=== PATIENT | male | born 1980 | race Asian ===

== ENCOUNTER 2018-07-30 10:09 | Day surgery (SDC) | payer OTHER ==
[~2018-07-30] VITALS: Ht 175.3 cm; Wt 64.0 kg
[2018-07-30] VITALS (14 sets, daily range): BP systolic 141–169; BP diastolic 88–99; PULSE 64–74; RESP 10–18; Ht 175.3 cm; Wt 64.0 kg
[~2018-07-30 10:09] MED LIST: CEFAZOLIN 2 GM/50 ML (PMX) 50 ML IVPB ONE
[2018-07-30] MEDS ORDERED: LACTATED RINGER'S 1,000 ML IV SCH (11:30)
--- NOTE | 2018-07-30 13:07 | HPN ---
Date/Time of Note Date/Time of Note DATE: 07/30/18 TIME: 13:07 Interval H&P Admission Note Pt. seen H&P reviewed: No system changes KD QUINTANA July 30, 2018 13:07
[2018-07-30] MEDS ORDERED: BUPIVACAINE 0.25% (MPF) 30 ML INJ ONE (13:22)
--- NOTE | 2018-07-30 13:22 | PREAC ---
Date/Time of Note Date/Time of Note DATE: 07/30/18 TIME: 13:21 Anesthesia Eval and Record Evaluation Time Pre-Procedure Interview DATE: 07/30/18 TIME: 13:21 Age 38 Sex male NPO: 8 hrs Preoperative diagnosis R. Hydrocele Planned procedure R. Hydrocelectomy Past Medical History Past Medical History: Includes Musculoskeletal: Other (Gout) Surgery & Anesthesia Issues No known issue Meds Anticoagulation: No Beta Cesar within 24 hr: No Reason Beta Cesar not given: Pt. not on B-Cesar No Active Prescriptions or Reported Meds Current Medications Lactated Ringer's 1,000 ml @ 30 mls/hr Q24H IV Last administered on 07/30/18at 11:06; Admin Dose 30 MLS/HR; Start 07/30/18 at 11:30 Meds reviewed: Yes Allergies Coded Allergies: No Known Drug Allergies (Unverified Allergy, Unknown, 07/30/18) Allergies Reviewed: Yes Labs/Studies Labs Reviewed: Reviewed by anesthesiologist test: N/A Pre-procedure Exam Last vitals Vital Signs Date Temp Pulse Resp B/P (MAP) Pulse Ox O2 O2 Flow FiO2 Time Delivery Rate 07/30/18 97.8 69 16 143/89 100 Room Air 10:30 (107) Airway: Adequate mouth opening Mallampati: Mallampati II Teeth: Normal Lung: Normal Heart: Normal ASA Physical Status ASA physical status: 2 Emergency: None Planned Anesthetic General/MAC: LMA Pre-operative Attestations Prior to commencing anesthesia and surgery, the patient was re-evaluated, there was verification of: *The patient's identity *The results of appropriate recent lab work and preoperative vital signs *The above evaluation not changing prior to induction *Anesthetic plan, risk benefits, alternative and complications discussed with patient/family; questions answered; patient/family understands, accepts and wishes to proceed. VIET MARIE MD July 30, 2018 13:22
[2018-07-30] MEDS ORDERED: PROPOFOL 20 ML ONE (13:26)
[2018-07-30] MEDS ORDERED: MIDAZOLAM 1 MG/ML 2 ML INJ ONE (13:26)
[2018-07-30] MEDS ORDERED: CEFAZOLIN 1 GM INJ ONE (13:26)
--- NOTE | 2018-07-30 14:29 | PDOCDIS ---
Discharge Instructions DIAGNOSIS Discharge Diagnosis Right hydrocele and spermatocele CONDITION [id number] Patient Condition: [id number] Good HOME CARE INSTRUCTIONS: [id number] Diet Instructions: [id number] Regular ACTIVITY: [id number] Activity Restrictions: [id number] Rest between Activity [id number] Bathing Restrictions: [id number] Shower FOLLOW UP/APPOINTMENTS Follow-up Plan Next week in office for removal of drainage REFERRALS Werner Referring Provider: KD Seay OTHER ORDERS: Other Orders: keep scrotum dry x 3 days May sponge bath There is a drain under the dressing, change dressing as needed Tylenol fo pain Bed rest - elevate scrotum KD QUINTANA July 30, 2018 14:29
[2018-07-30] MEDS ORDERED: HYDROmorphONE 1 MG/5 ML IV SYRINGE IV PRN (14:30)
[2018-07-30] MEDS ORDERED: OXYCODONE/ACETAMINOPHEN (5/325) TAB PO PRN (14:30)
[2018-07-30] MEDS ORDERED: KETOROLAC 30 MG INJ IV PRN (14:30)
[2018-07-30] MEDS ORDERED: ONDANSETRON 4 MG INJ IV PRN (14:30)
--- NOTE | 2018-07-30 14:32 | OPR ---
Date/Time of Note Date/Time of Note DATE: 07/30/18 TIME: 14:30 Operative Report Preoperative Diagnosis right hydrocele Postoperative Diagnosis right hydrocele and spermatocele Operation/Procedure Performed right hydrocelectomy and spermatocelectomy Surgeon tiarra Recovery Assistant none Anesthesia Type: general Estimated Blood Loss: 0 - 10 ml's Transfusion none Specimen hydrocele and spermatocele Grafts/Implants none Tubes/Drains 1/4 inch cami drain Complications none Pt Condition Post Procedure: stable Disposition: PACU Indications hydrocele Procedure Description dict [id number] KD QUINTANA July 30, 2018 14:32
--- NOTE | 2018-07-30 14:34 | PAC ---
Date/Time of Note Date/Time of Note DATE: 07/30/18 TIME: 14:34 Post-Anesthesia Notes Post-Anesthesia Note Last documented vital signs Vital Signs Date Temp Pulse Resp B/P (MAP) Pulse Ox O2 O2 Flow FiO2 Time Delivery Rate 07/30/18 97.8 69 16 143/89 100 Room Air 10:30 (107) Activity: WNL Respiratory function: WNL Cardiovascular function: WNL Mental status: Baseline Pain reasonably controlled: Yes Hydration appropriate: Yes Nausea/Vomiting absent: Yes VIET MARIE MD July 30, 2018 14:34
--- NOTE | 2018-07-30 18:38 | OPR ---
DATE OF OPERATION: 07/30/2018 PREOPERATIVE DIAGNOSIS: Right hydrocele. POSTOPERATIVE DIAGNOSES: 1. Right hydrocele. 2. Spermatocele. PROCEDURES: Right hydrocelectomy, right spermatocelectomy. SURGEON: Casey Aguilar MD ANESTHESIA: General. COMPLICATIONS: None. SPECIMENS: Spermatocele and hydrocele. ESTIMATED BLOOD LOSS: Less than 5 mL. PROCEDURE IN DETAILS: The patient was brought into the operating room and placed on the operating ta ble in supine position. He was prepped and draped in the usual fashion after anesthesia was induced. A timeout was undertaken. Appropriate pressure points were padded. He received preoperative antib iotic therapy and sequential compression devices were applied. His physical examination demonstrated a moderate sized right hydrocele. A transverse scrotal incision was created through the scrotal wal l down to the layer of the tunica vaginalis which was from the surrounding structures. The tunica vaginalis was noted to be markedly thickened. Pinpoint hemostasis was obtained. An incision was created on the anterior aspect of the tunica vaginalis, which would allow for drainage of 75 mL of clear fluid. A portion of the anterior aspect of the tunica vaginalis was excised which then allo wed for inverting the tunica vaginalis and bringing the new edges together with a running stitch of 3 -0 silk suture. The testicle was repositioned back into the scrotum after a 5 mm incision was create d with a 15-blade scalpel at the dependent portion of the right hemiscrotum, which allowed for placem ent of a 0.25-inch Noel drain which was attached to the scrotal wall with a 0 silk stitch. The sc rotal wall was then closed in 2 layers, the first layer with running stitch of 3-0 chromic suture and the second layer with interrupted 3-0 chromic suture. A 6 mL of 0.25% Marcaine without epinephrine was instilled into the scrotal wall at the site of the incision. A scrotal support, Fluffs and steri le dressing were applied. He was transferred to recovery room in stable condition and will follow up in the office next week for removal of his drain. The sponge and needle count were all correct. Th ere were no noted complications. He will be discharged home on [place] 5/325 one tab p.o. q.6 p.r.n., dispense #30, no refill. Dictated By: CASEY KNAPP/FRANK Conf#: [id number] DID#: [id number]
== END 2018-07-30 16:10 | disposition home or self-care (01) ==
LOC: SDS 10:09
PROVIDERS: ATTEND Urology
DX: N43.3 Hydrocele, unspecified (principal); N43.41 Spermatocele of epididymis, single
CPT/HCPCS: 54840; 55040; J0690; J1170; J2250; J3010; Z7512; Z7610; 88302